=== PATIENT | female | born 1950 | race Caucasian/White ===

== ENCOUNTER 2024-02-22 09:01 | Inpatient (IN) | payer OTHER, SELFPAY ==
[2024-02-20 13:02] VITALS: BP 165/110
[2024-02-20 13:28] LABS: % Basophils 0.8 % (0-2); % Immature Granulocytes 0.5 % (0-0.5); % Lymphocytes 20.7 % (20.5-51.1); % Monocytes 7.8 % (1.7-9.3); % Neutrophils 69.2 % (42.2-75.2); Absolute Basophils 0.1 10^3/uL (0-0.2); Absolute Eosinophils 0.1 10^3/uL (0-0.7); Absolute Lymphocytes 1.3 10^3/uL (1.2-3.4); Absolute Monocytes 0.5 10^3/uL (0.1-0.6); Absolute Neutrophils 4.2 10^3/uL (1.4-6.5); Hematocrit 35.6 % (37.0-47.0); Hemoglobin 12.6 g/dL (12.0-16.0); Mean Corp Hgb Conc. 35.4 g/dL (33.0-37.0); Mean Corpuscular Hgb 30.8 pg (27.0-31.0); Mean Platelet Volume 9.4 fL (7.4-10.4); Nucleated Red Blood Cells % 0 %; Platelet Count 246 10^3/uL (130-400); Red Blood Cell Count 4.09 10^6/uL (4.20-5.40); Red Cell Dist. Width 12.3 % (11.5-14.5)
[2024-02-20 13:48] LABS: ALT (SGPT) 39 U/L (0-35); AST (SGOT) 47 U/L (14-36); Albumin 4.5 g/dl (3.5-5.0); Alkaline Phosphatase 102 U/L (38-126); Blood Urea Nitrogen 17 mg/dl (7-17); Calcium 9.4 mg/dl (8.4-10.2); Carbon Dioxide 25 mmol/L (22-30); Chloride 103 mmol/L (98-107); Glucose 114 mg/dl (70-99); Potassium 4.3 mmol/L (3.5-5.1); Sodium 142 mmol/L (135-145); Total Bilirubin 0.8 mg/dl (0.2-1.3); Total Protein 6.9 g/dl (6.3-8.2); eGFR > 60.00
[2024-02-20 14:08] LABS: Erythrocyte Sed Rate 24 mm/hour (0-20)
[2024-02-20 16:04] VITALS: BMI 26.7
[2024-02-20 16:18] VITALS: BP 176/97
--- NOTE | 2024-02-20 16:23 | ED.GENMED ---
History of Present Illness
General
Chief Complaint: Visual Problem
Source: patient
Exam Limitations: none
Time Seen by Provider: 02/20/24 15:57
Nursing documentation reviewed up to this point in time: agreed with
History of Present Illness
History of Present Illness:
3 days ago got vision changes L eye lower field was blurry; upper normal, lasted 10 min
then 2 days ago had episode lasting 1 hour with blurry vision L lower and lateral eye visual field associated with brief intense headache that resolved
then yesterday had mild headache but doesn't think she had vision changes
today went to eye doc and sent for eval for CVA
eye exam normal
does have scalp pain for a few mo but it is top of head and she has psoriasis there; no chewing fatigue
No history of A-fib, hyperlipidemia, diabetes
No history of migraines.
Past History
Past History
ED Past Medical History: Cancer, HTN, Other (sleep apnea) and Other (Hypertension previous appendectomy, inguinal hernia repair, left-sided breast cancer with ostectomy and radiation therapy)
ED Past Surgical History: Appendectomy and Other
Social History
Tobacco: Non-smoker
Alcohol: None
Personal:
Living: with family
Family History
Family History: Negative Diabetes, Hypertension or CAD
Review of Systems
Review of Systems
Allergies reviewed?: Yes
All Other Systems: Not applicable
Phy Exam
Physical Exam
Physical Exam:
GENERAL: Alert , in no apparent distress
HEAD: NCAT
EYE: pupils equal and reactive, no nystagmus, no photophobia
NECK: Supple,full rom, nontender
ENT: o/p clr, mmm.
CARDIAC: Regular rate and rhythm . no edema
LUNGS: Clear breath sounds bilaterally, no acute respiratory distress, no wheezes/rales/rhonchi
ABDOMEN: Soft, without focal tenderness, no r/g, no cvat
NEUROLOGICAL: Alert and orientedx 4, cn intact, no facial asymmetry, 5/5 strength in UE/LE, sensation intact, romberg neg, ambulates without assistance, neg pronator drift, visual olivas intact
SKIN: Warm and dry, skin intact.
MUSCULOSKELETAL: No edema, well perfused.
PSYCH: Normal and appropriate interaction.
Course
Orders/Labs/Results
Orders:
Orders
02/20/24 13:17
C-Reactive Protein Urgent
Complete Blood Count/With Diff Urgent
Comprehensive Metabolic Panel Urgent
Sed Rate [Erythrocyte Sed Rate] Urgent
02/20/24 16:31
Electrocardiogram (*1) Urgent
Reason for Study: TIA/Stroke
EKG- Treatment ONCE
02/20/24 16:36
CT Head & Neck Angio W/wo IV Urgent
Comment:
Reason For Exam: l EYE VISION LOSS HEADACHE
02/20/24 18:55
Aspirin 325 mg PO NOW STA
02/20/24 18:57
Clopidogrel Bisulfate [Plavix] 75 mg PO NOW STA
02/20/24 19:53
Admit/Transfer Patient As Directed
Co-Sign Provider:
Level of Care: Observation services
Assign to:: Telemetry
Physician / Group: Lex
Diagnosis: Vision Changes
Reason for Telemetry: CVA/TIA
Date to Stop Telemetry: 02/23/24
Time to Stop Telemetry: 11:00
PRN Pain Medication Management As Directed
May give lesser potent ordered pain med per pt: Yes
preference::
Protocol:: Medication orders for pain may be administered in a
manner that supports deferring to patient preference
when the pt is:
- Requesting an ordered lesser potent pain medication.
Least to most potent pain medications are defined
as: acetaminophen < NSAID < tramadol < opioids
(morphine, oxycodone, hydromorphone).
- Requesting a lesser dose of the same medication IF
ORDERED.
- Requesting a less intrusive route of administration
if both routes are prescribed by the provider (PO <
IV).
02/20/24 19:54
Code Status As Directed
Resuscitation Status: Full Code
02/23/24 11:00
DC Protocol for Telemetry ONCE
Abnormal Lab Results
02/20/24
13:17
RBC 4.09 L 10^6/uL
(4.20-5.40)
Hct 35.6 L %
(37.0-47.0)
ESR 24 H mm/hour
(0-20)
Glucose 114 H mg/dl
(70-99)
AST 47 H U/L
(14-36)
ALT 39 H U/L
(0-35)
C-Reactive Protein 19.10 H mg/L
(0.0-10.00)
02/20/24 13:17
02/20/24 13:17
Vital Signs
Initial and Last Documented VS:
Initial Vital Signs
Temp Pulse Resp BP Pulse Ox
97.9 F 94 18 165/110 99
02/20/24 13:02 02/20/24 13:02 02/20/24 13:02 02/20/24 13:02 02/20/24 13:02
Last Documented Vital Signs
Temp Pulse Resp BP Pulse Ox
97.9 F 94 18 176/97 98
02/20/24 13:02 02/20/24 13:02 02/20/24 13:02 02/20/24 16:18 02/20/24 17:03
MDM/Problems Addressed
Differential Diagnosis Includes:
CVA, dissection, temporal arteritis, ocular migraine
MDM/Problems Addressed:
73-year-old female with a history of hypertension presents after having a couple of days of intermittent left-sided blurry vision out of her left eye. The visual field was not cut but she had blurriness to the lower part of the field on the left.
Associated with this was a slight headache but only briefly and not the entire time. She says today she has not had any symptoms but she feels anxious now. She went to the eye doctor and had a normal eye exam and was sent here for workup for CVA.
Patient is not a smoker. She has no symptoms currently. Her blood pressure was elevated but she is also quite anxious. Visual olivas were normal. No other focal neurologic deficits. EKG is normal sinus rhythm. She does have a mild elevation of
the ESR and CRP however she does not have temporal artery tenderness. She does have some scalp psoriasis on the top of her scalp that is been ongoing. He is she is not having any fatigue with chewing.
Discussed with neuro who recommended CTA of the head and neck and admit for an MRI
CTA shows 50-70% stenosis R vert artery, 50% L vert artery; no dissection
asa and plavix
neuro aware; recommend MRI
*Critical Care Note
Total Time (30-74mins, 75-104mins- exclusive of procedures): Not Applicable
ED Attending Note
-
Portions of this chart may have been created with voice recognition software.� Occasional wrong word or��sound alike� substitutions may have occurred due to the inherent limitations of voice recognition software.
Discharge Plan
Departure
Patient Disposition: Admit
Date of Disposition: 02/20/24
Time of Disposition: 18:13
Admit to: Telemetry
Presentation/result/management discussed w/ accepting MD/DO: Hospitalist
Condition: Fair
Covid-19: Not Applicable
Discharge Problem:
Alteration in vision, Brain TIA
Prescriptions:
No Action
cyanocobalamin (vitamin B-12) 1,000 MCG tablet
1,000 mcg PO DAILY
cholecalciferol (vitamin D3) 2,000 UNITS tablet
2,000 unit PO HS
losartan 50 mg Tablet
50 mg PO DAILY
latanoprost 0.005 % Drops
1 drp BOTH EYES HS
gabapentin 300 mg Capsule
300 mg PO HS
Referrals:
Sriram Edwards DO [Family Provider] -
Interventions
Interventions:
*Risk Screen - Suicide Last Done: 02/20/24 16:04
*General Assessment Last Done: 02/20/24 16:04
*Neglect/Abuse Screening Last Done: 02/20/24 16:04
ED- Fall Risk Assessment Last Done: 02/20/24 16:04
*ED COVID-19 Vaccine History Last Done: 02/20/24 16:04
ED- Neurological Assessment Last Done: 02/20/24 16:04
ED-EENT Assessment Last Done: 02/20/24 16:10
ED Swallowing Screen Last Done: 02/20/24 16:10
Discharge Date and Time
Print Language: ITALIAN
[2024-02-20] MEDS: ASPIRIN 325 MG PO (18:57)
[2024-02-20] MEDS: PLAVIX 75 MG PO (19:38)
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
[2024-02-20 21:08] VITALS: BP 196/96; BMI 26.3
[2024-02-20] MEDS: NEURONTIN 300 MG PO (21:47)
[2024-02-20 23:26] VITALS: BP 130/85; BP 151/84; BP 164/94; PULSE 64; PULSE 65; PULSE 85
[2024-02-21] VITALS (8 sets, daily range): BP systolic 120–163; BP diastolic 68–93; PULSE 68–98; O2SAT 97–98; BMI 26.3
[2024-02-21 05:50] LABS: Hematocrit 34.9 % (37.0-47.0); Hemoglobin 12.2 g/dL (12.0-16.0); Mean Corpuscular Hgb 30.3 pg (27.0-31.0); Mean Corpuscular Volume 86.8 fL (81.0-99.0); Mean Platelet Volume 9.5 fL (7.4-10.4); Platelet Count 254 10^3/uL (130-400); Red Blood Cell Count 4.02 10^6/uL (4.20-5.40); Red Cell Dist. Width 12.1 % (11.5-14.5); White Blood Cell Count 4.7 10^3/uL (4.8-10.8)
[2024-02-21 06:15] LABS: Blood Urea Nitrogen 12 mg/dl (7-17); Calcium 9.3 mg/dl (8.4-10.2); Carbon Dioxide 27 mmol/L (22-30); Chloride 105 mmol/L (98-107); Estimated Creatinine Clearance 62 ml/min; Glucose 100 mg/dl (70-99); HDL Cholesterol 63 mg/dl; LDL Cholesterol, Calculated 177 mg/dl; Potassium 4.1 mmol/L (3.5-5.1); Sodium 143 mmol/L (135-145); Total Cholesterol 262 mg/dl (50-199); Triglyceride 114 mg/dl (10-149); Very Low Density Lipoprotein 22 mg/dl (0-30); eGFR > 60.00
[2024-02-21 07:38] LABS: Glycohemoglobin (HgbA1c) 5.2 % (4.0-5.6)
--- NOTE | 2024-02-21 07:42 | CON.NEURO ---
Consultation
Order
Date of Consultation: 02/21/24
Requesting Provider: Paulo Burnett DO
Reason for Consult: TIA
CC: none
HPI: This is a 73-year-old woman who presented to [facility] on February 16, 2024 with visual symptoms. According to the patient she has had intermittent painless blurred vision in the left lower visual field lasting from 10 to 60
minutes since 02/17/2024. Ms. Bui endorses a brief episode of 'moving or wiggling' in the right side with associated sharp short lasting right-sided headache. No reports of motor, sensory, speech or balance changes. History of primary
headache syndromes.
The patient has a history of dry macular degeneration and uses a grid for monitoring, with no issues noted.
ER VS: 165/110-196/96, 94, afebrile.
EKG: NSR, QTc Int : 434 ms
PDMP: No recently prescribed medications.
Labs: LDL 177, Glucose�114, normal sodium, creatinine, normal WBCs, hemoglobin, platelets.
HEAD CTA:
1. Moderate irregular soft and calcific atherosclerotic plaque in the right intracranial vertebral artery causing a 50-70% diameter stenosis.
2. Less than 25% diameter stenosis in the left intracranial vertebral artery.
3. Fusiform aneurysmal dilatation of the proximal basilar artery (5.5 mm diameter).
4. No CTA evidence for large vessel arterial stenosis or occlusion in the anterior circulation.
5. No CT evidence for acute intracranial hemorrhage or transcortical infarct.
6. Moderate to severe white matter leukoaraiosis in the frontal and parietal lobes.
CTA neck-1. Moderate calcific atherosclerotic plaque in both proximal internal carotid arteries causing 25-50% diameter stenoses.
2. 50% diameter stenosis in the proximal left vertebral artery.
3. No CTA evidence for right vertebral artery stenosis or occlusion.
4. Mild amount of increased soft tissue in the left side of the base of the tongue effacing the left vallecula which could be (1) lymphoid hyperplasia or (2) less likely squamous cell carcinoma.
5. Severe discogenic degenerative disease at C5/C6 with a disc-osteophyte complex causing mild spinal cord compression and central canal stenosis.
PMH: C5/C DJD, L breast CA, HTN, chronic back pain, Glaucoma, Dry Macular Degeneration, nephrolithiasis, vit D deficiency, h/o left fifth metatarsal fracture
PSH: Bilateral cataract surgery. L Lumpectomy, lap cholecystectomy, appendectomy.
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
FH:mother strokes in her late 60s
All: NKDA:
ROS:Constitutional: Negative. Negative for chills, fever and unexpected weight change.
HENT: Negative for ear pain, hearing loss, tinnitus and trouble swallowing.
Eyes: Positive for visual disturbance.
Respiratory: Negative for cough, choking and shortness of breath.
Cardiovascular: Negative for chest pain, palpitations and leg swelling.
Gastrointestinal: Negative for abdominal pain and vomiting.
Endocrine: Negative. Negative for cold intolerance.
Genitourinary: Negative for dysuria, flank pain and urgency.
Musculoskeletal: Positive for leg cramps
Skin: Negative for rash.
Allergic/Immunologic: Negative. Negative for immunocompromised state.
Neurological: Negative for dizziness, tremors, seizures, speech difficulty, numbness and headaches.
Psychiatric/Behavioral: Negative for behavioral problems, confusion and hallucinations.
General: Well developed. In no acute distress.
Cardio: Regular rate and rhythm without murmur. Extremities are without cyanosis or edema.
Neuro:
Mental Status: Alert, oriented to person, place, and date. Normal attention and recall. Good fund of knowledge. Follows complex requests across the midline. Comprehension, naming, and repetition intact. Immediate and delayed recall 3/3.
Cranial Nerves: . Pupils are equally round, surgical. EOMs full. Visual olivas full to confrontation. No ptosis. No nystagmus. V1-V3 intact to light touch and pinprick bilaterally, symmetric. Face symmetric. Normal hearing AU. The palate
elevated well. SCMs and traps 5/5. Tongue midline. No dysarthria. Telemetry monitoring
Motor: Normal bulk and tone. No pronator or arm drift. Strength 5/5 throughout. No clonus.
Reflexes: 2+ throughout the upper extremities and knees. 2/2 in AJs. Plantar responses flexor bilaterally.
Sensory: Normal vibration and JPS.
Coordination: No dysmetria or tremor.
Gait: deferred
Assessment and Plan:
I. Transient visual changes: TIA vs migraine aura vs ocular etiology
II. Multifocal intracranial stenosis. LDL 177
III. Basilar fusiform aneurysm
IV. Severe C5/C6 DJD
III. Base of the tongue abnormality
-Telemetry monitoring
-Blood pressure control.
-Brain MRI without devi
-Continue aspirin 81 mg once a day and Plavix for 21 days
-Lipitor 40 mg nightly
-Please obtain medical records from patient's damage cutter
-ENT consult for the base of the tongue abnormality
I personally reviewed all radiology and labs along with past medical records pertinent to current medical problems. Total time spent in patient care is 60 minutes.
Thank you for allowing us to participate in the care of this patient. We will continue to follow. Please do not hesitate to contact us with any questions or concerns.
Subjective/Objective
Subjective Data
Date of Service: February 21, 2024
Objective Data
Vital Signs
Temp Pulse Resp BP Pulse Ox
36.6 C 60 16 148/73 100
02/21/24 03:22 02/21/24 03:22 02/21/24 03:22 02/21/24 03:22 02/21/24 03:22
Lab Results
02/21/24 05:14
02/21/24 05:14
Sodium 143 mmol/L (135-145) 02/21/24 05:14
Potassium 4.1 mmol/L (3.5-5.1) 02/21/24 05:14
BUN 12 mg/dl (7-17) 02/21/24 05:14
Glucose 100 mg/dl (70-99) H 02/21/24 05:14
Calcium 9.3 mg/dl (8.4-10.2) 02/21/24 05:14
LDL Cholesterol, Calc 177 mg/dl 02/21/24 05:14
Patient Allergies
No Known Allergies Allergy (Verified 02/20/24 13:04)
Medications
-
Active Medications
Generic Name Dose Route Start Last Admin
Trade Name Freq PRN Reason Stop Dose Admin
Acetaminophen 650 mg 02/20/24 21:07
Acetaminophen 325 Mg Tablet PO 03/19/24 21:06
Q4HPRN PRN
Mild Pain / Temp > 101
Aspirin 81 mg 02/21/24 08:00
Aspirin 81 Mg Chewable Tablet PO 03/20/24 07:59
DAILY HAYLEE
Atorvastatin Calcium 40 mg 02/21/24 18:00
Atorvastatin (Lipitor) 40 Mg Tablet PO 03/20/24 17:59
QPM HAYLEE
Clopidogrel Bisulfate 75 mg 02/21/24 08:00
Clopidogrel 75 Mg Tablet PO 03/20/24 07:59
DAILY HAYLEE
Diazepam 5 mg 02/21/24 08:00
Diazepam 5 Mg Tablet PO 02/22/24 07:59
ONCE PRN PRN
PRIOR TO MRI
Gabapentin 300 mg 02/20/24 22:00 02/20/24 21:47
Gabapentin 300 Mg Capsule PO 03/19/24 21:59 300 mg
HS HAYLEE Administration
Hydralazine HCl 5 mg 02/20/24 21:07
Hydralazine 20 Mg/Ml Vial IV 03/19/24 21:06
Q6HPRN PRN
SBP > 200
Losartan Potassium 50 mg 02/21/24 08:00
Losartan 50 Mg Tablet PO 03/20/24 07:59
DAILY HAYLEE
Sodium Chloride 0 flush 02/20/24 22:00
Sodium Chloride 0.9% (Flush) Syringe IV 03/19/24 21:59
PER PROTOCOL HAYLEE
Home Medications
�Medication �Instructions �Recorded
cholecalciferol (vitamin D3) 50 2,000 unit PO HS Supplement 06/10/14
mcg (2,000 unit) tablet
cyanocobalamin (vitamin B-12) 1,000 mcg PO DAILY Supplement 06/10/14
1,000 mcg tablet
gabapentin 300 mg capsule 300 mg PO HS neurological pain 02/20/24
latanoprost 0.005 % eye drops 1 drp BOTH EYES HS Eye Condition 02/20/24
losartan 50 mg tablet 50 mg PO DAILY Blood Pressure 02/20/24
Vital Signs and Labs
-
Vital Signs and Labs:
Vital Signs
Temp Pulse Resp BP Pulse Ox
37.0 C 74 16 146/96 96
02/21/24 07:00 02/21/24 08:22 02/21/24 07:00 02/21/24 08:22 02/21/24 07:00
Lab Results
02/21/24 05:14
02/21/24 05:14
Sodium 143 mmol/L (135-145) 02/21/24 05:14
Potassium 4.1 mmol/L (3.5-5.1) 02/21/24 05:14
BUN 12 mg/dl (7-17) 02/21/24 05:14
Glucose 100 mg/dl (70-99) H 02/21/24 05:14
Calcium 9.3 mg/dl (8.4-10.2) 02/21/24 05:14
LDL Cholesterol, Calc 177 mg/dl 02/21/24 05:14
Medications
-
Medications:
Generic Name Dose Route Start Last Admin
Trade Name Freq PRN Reason Stop Dose Admin
Acetaminophen 650 mg 02/20/24 21:07
Acetaminophen 325 Mg Tablet PO 03/19/24 21:06
Q4HPRN PRN
Mild Pain / Temp > 101
Aspirin 81 mg 02/21/24 08:00 02/21/24 08:22
Aspirin 81 Mg Chewable Tablet PO 03/20/24 07:59 81 mg
DAILY HAYLEE Administration
Atorvastatin Calcium 40 mg 02/21/24 18:00
Atorvastatin (Lipitor) 40 Mg Tablet PO 03/20/24 17:59
QPM HAYLEE
Clopidogrel Bisulfate 75 mg 02/21/24 08:00 02/21/24 08:22
Clopidogrel 75 Mg Tablet PO 03/20/24 07:59 75 mg
DAILY HAYLEE Administration
Diazepam 5 mg 02/21/24 08:00
Diazepam 5 Mg Tablet PO 02/22/24 07:59
ONCE PRN PRN
PRIOR TO MRI
Gabapentin 300 mg 02/20/24 22:00 02/20/24 21:47
Gabapentin 300 Mg Capsule PO 03/19/24 21:59 300 mg
HS HAYLEE Administration
Hydralazine HCl 5 mg 02/20/24 21:07
Hydralazine 20 Mg/Ml Vial IV 03/19/24 21:06
Q6HPRN PRN
SBP > 200
Losartan Potassium 50 mg 02/21/24 08:00 02/21/24 08:22
Losartan 50 Mg Tablet PO 03/20/24 07:59 50 mg
DAILY HAYLEE Administration
Sodium Chloride 0 flush 02/20/24 22:00
Sodium Chloride 0.9% (Flush) Syringe IV 03/19/24 21:59
PER PROTOCOL HAYLEE
Home Medications
-
Home Medications
cholecalciferol (vitamin D3) 50 mcg (2,000 unit) tablet 2,000 unit PO HS Supplement 06/10/14
cyanocobalamin (vitamin B-12) 1,000 mcg tablet 1,000 mcg PO DAILY Supplement 01/14/15
gabapentin 300 mg capsule 300 mg PO HS neurological pain 02/20/24
latanoprost 0.005 % eye drops 1 drp BOTH EYES HS Eye Condition 02/20/24
losartan 50 mg tablet 50 mg PO DAILY Blood Pressure 02/20/24
[2024-02-21] MEDS: LOW STRENGTH ASPIRIN 81 MG PO (08:22)
[2024-02-21] MEDS: COZAAR 50 MG PO (08:22)
[2024-02-21] MEDS: PLAVIX 75 MG PO (08:22)
[2024-02-21] MEDS: VALIUM 5 MG PO (10:11)
--- NOTE | 2024-02-21 12:36 | PTOTSP ---
pt currently demonstrates ability to complete simple ADLs, functional transfers, ambulation with no assistance. pt demonstrates no overt deficits regarding self care, insight, safety. no acute OT needs identified at this time, will sign off.
--- NOTE | 2024-02-21 12:41 | PTOTSP ---
Pt has no deficits and is independent with ambulation without need for any assistive device. PT will sign off.
--- NOTE | 2024-02-21 13:15 | W.PN.HOSP.TC ---
Today's Communication/Plan
-
MRI brain with embolic strokes -- consulted cardiology and ordered echo
Continue DAPT and statin
Assessment / Plan
Assessment / Plan
Physical Exam
General: Not in acute distress
HEENT: Moist mucous membranes
Respiratory: Clear to Auscultation Bilaterally
Cardiac: S1/S2 and Regular Rhythm
GI: Soft, Non Tender, Non Distended and Normal Bowel Sounds
Musculoskeletal: No Cyanosis and No Edema
Neuro: AAO x 3 and Cranial Nerves 2 through 12, and Strength and Sensation are all nonfocal/grossly intact
Psych: Calm
Assessment/Plan
Patient is a 73 y/o female with past medical history significant for hypertension, glaucoma and dry macular degeneration who presents to ED complaining of vision changes x 3-4 days.
Small acute infarcts in the right centrum semiovale, right lentiform nucleus, left midbrain, and right cerebellum
Transient Vision Changes - suspected secondary to TIA vs migraine aura vs ocular etiology - RESOLVED
Multifocal intracranial stenosis
Basilar fusiform aneurysm
Severe C5/C6 Degenerative Disc Disease
Base of the tongue abnormality
- CT / CTA done in the ED shows areas of vertebral artery stenosis and basilar artery aneurysmal dilation (5mm).
- MRI Brain (as per radiologist's report): 'Small acute infarcts in the right centrum semiovale, right lentiform nucleus, left midbrain, and right cerebellum.'
- Neurology evaluation.
- ASA, Plavix, start statin: continue aspirin 81 mg once a day and Plavix for 21 days, and continue Lipitor 40 mg nightly
- Follow for any recurrent vision changes / other symptoms.
- Minimal elevations in ESR / CRP not consistent with GCA.
- LDL 177
- ? atypical migraine syndrome - though no prior history of similar.
- Requesting records from patient's platinum and palladium kettle tender's office
- Will consult cardiology given suspected embolic stroke
- Echocardiogram
Base of the tongue abnormality
-ENT inpatient vs. outpatient consult, as per neurology recommendations
Benign Hypertension
- Presently elevated in the ED - will allow degree of permissive hypertension given potential CVA / TIA.
- Continue losartan with holding parameters.
- Hydralazine as needed for very high BP.
- Adjust regimen as needed for goal of normotension at discharge.
Glaucoma
Dry Macular Degeneration
- Seen by Ophtho today and exam reportedly unremarkable.
DVT Prophylaxis: Lovenox
Code Status: Full
Anticipated Discharge: 24 - 48 hours
Subjective/Interval History
-
Date of Service: February 21, 2024
Patient was seen and examined. At the time she was seen, she reported that her blurry vision has resolved. No other new symptoms or complaints.
Objective Data
-
Labs:
Laboratory Results
02/21/24
05:14
WBC 4.7 L
Hgb 12.2
Hct 34.9 L
Plt Count 254
Sodium 143
Potassium 4.1
Chloride 105
Carbon Dioxide 27
BUN 12
Creatinine 0.7
Glucose 100 H
Calcium 9.3
Vital Signs:
Vital Signs
Temp Pulse Resp BP Pulse Ox
98.2 F 73 16 163/91 96
02/21/24 11:00 02/21/24 11:00 02/21/24 11:00 02/21/24 11:00 02/21/24 11:00
I&O
02/20/24 02/21/24 02/22/24
06:59 06:59 06:59
Intake Total 480 / 480
Balance 480 / 480
--- NOTE | 2024-02-21 13:45 | CON.CAR ---
Addendum entered and electronically signed by Darrick Ohara MD 02/21/24 15:05:
Patient seen and examined in collaboration with SLIP SEAT COVERER; agree with below. 73-year-old female with hypertension and hyperlipidemia admitted with visual disturbance; found to have multi infarcts on brain MRI.
-Cardiology consulted for possible cardioembolic source.
-The patient will undergo a TRISTAN and ILR insertion tomorrow.
-equipment monitor phototypesetting.
-NPO after midnight.
-LDL is 177 (goal is less than 55); started on atorvastatin 40 mg daily.
Original Note:
Consultation
Consultation Request
Date/Time Consultation Requested: 02/21/24 1340
Date/Time Consultation Performed: 02/21/24 1400
Requesting Provider: Dr. Batres
Performing Provider: Ranjana SAWANT for Dr. Ohara
Reason for Consultation: Strokes on MRI
Medical History
-
Chief Complaint: visual abnormalities, headache
History of Present Illness:
73 y/o female with hypertension, sleep apnea (not on CPAP/BiPAP), glaucoma, fibromyalgia, and breast cancer s/p lumpectomy and radiation who is here for evaluation of visual changes intermittently on left side since Sunday. She had associated
nausea. There was head pain as well, that was not like her usual ache. She went to the paint maker and was told to be evaluated in ER for stroke. MRI has revealed small acute infarcts in the right centrum semiovale, right lentiform nucleus, left
midbrain, and right cerebellum.
Past Medical History
Past Medical History: Cancer, HTN and Other (as above)
Social History
Tobacco: Non-Smoker
Alcohol: Occasional
Family History
Family History: CAD (dad [place] in his 50's, mom stroke)
Allergies / Home Medications
Allergy/AdvReac Type Severity Reaction Status Date / Time
No Known Allergies Allergy Verified 02/20/24 13:04
�Medication �Instructions �Recorded �Confirmed �Type
cholecalciferol (vitamin D3) 50 2,000 unit PO HS Supplement 06/10/14 02/20/24 History
mcg (2,000 unit) tablet
cyanocobalamin (vitamin B-12) 1,000 mcg PO DAILY Supplement 06/10/14 02/20/24 History
1,000 mcg tablet
gabapentin 300 mg capsule 300 mg PO HS neurological pain 02/20/24 02/20/24 History
latanoprost 0.005 % eye drops 1 drp BOTH EYES HS Eye Condition 02/20/24 02/20/24 History
losartan 50 mg tablet 50 mg PO DAILY Blood Pressure 02/20/24 02/20/24 History
Review of Systems
-
History Source: Patient
All other systems: Negative unless noted
Abdomen/GI: Nausea
Neurological: Headache and Other (visual changes left eye)
Physical Exam
Vital Signs
Temp Pulse Resp BP Pulse Ox
98.2 F 73 16 163/91 96
02/21/24 11:00 02/21/24 11:00 02/21/24 11:00 02/21/24 11:00 02/21/24 11:00
Lab Results
02/21/24 05:14
02/21/24 05:14
Physical Exam
General: Well Developed, Well Nourished and No Apparent Distress
HEENT: Normocephalic and Anicteric
Respiratory: Clear and Non Labored Respirations
Cardiac: Regular Rhythm
Musculoskeletal: No Edema
Skin: Warm and Dry
Neuro: AO x 3
Psych: Calm
Impression / Plan
-
Strokes:
-this diagnosis is threat to bodily function
-noted on brain imaging
-neuro on the case
-on ASA, plavix, and statin
-echo today pending
-plan for TRISTAN and loop recorder tomorrow
-tele and EKG SR
-Head neck CT as below and neurosurgery consulted
Dyslipidemia:
-LDL is 177
-continue Lipitor (new)
HTN:
-continue ARB
-may need to adjust as BP is elevated, but await neuro BP recommendations in setting of strokes noted on MRI
Data:
Head/neck CTA: Moderate calcific atherosclerotic plaque in both proximal internal carotid arteries causing 25-50% diameter stenoses. 50% diameter stenosis in the proximal left vertebral artery. No CTA evidence for right vertebral artery stenosis or
occlusion. Mild amount of increased soft tissue in the left side of the base of the tongue effacing the left vallecula which could be (1) lymphoid hyperplasia or (2) less likely squamous cell carcinoma. Severe discogenic degenerative disease at
C5/C6 with a disc-osteophyte complex causing mild spinal cord compression and central canal stenosis. Moderate irregular soft and calcific atherosclerotic plaque in the right intracranial vertebral artery causing a 50-70% diameter stenosis. Less
than 25% diameter stenosis in the left intracranial vertebral artery. Fusiform aneurysmal dilatation of the proximal basilar artery (5.5 mm diameter). No CTA evidence for large vessel arterial stenosis or occlusion in the anterior circulation. No CT
evidence for acute intracranial hemorrhage or transcortical infarct. Moderate to severe white matter leukoaraiosis in the frontal and parietal lobes.
Data Reviewed
-
EKG: Tracing Personally Visualized and interpreted (NSR)
MRI: Report Reviewed by me (Small acute infarcts in the right centrum semiovale, right lentiform nucleus, left midbrain, and right cerebellum.)
Medical Tests (Nuc Med, Echo etc): Other (echo is ordered and pending)
Labs: Labs Reviewed by me
--- NOTE | 2024-02-21 16:54 | CM ---
Alert awake oriented patient who lives with her Carson in a 2 story home with 3 steps to enter and 12 steps to bed/bathroom. She is independent in driving and all activates of daily living.No adaptive devices.Edmond letter given explained
signed on chart.
Had VN in past . No SNF hx
Pharmacy [facility]
PCP Raine
PLAN Home with no anticipated needs
[2024-02-21] MEDS: LOVENOX 40 MG SC (18:26)
[2024-02-21] MEDS: LIPITOR 40 MG PO (18:26)
--- NOTE | 2024-02-21 19:30 | PTCARENOTE ---
Pt received from previous shift in bed w/family at bedside. NIHSS performed upon rounds at bedside w/previous RN = 1, ataxia noted to LE. Neuro check WNL. Pt reports tremors at baseline. Telemetry = SR. Full physical assessment documented
(refer to worklist). Plan of care discussed. OOB to BR. Knee high SCDs in place. Plan of care ongoing.
[2024-02-21] MEDS: NEURONTIN 300 MG PO (21:42)
[2024-02-22 04:00] VITALS: BP 171/100
[2024-02-22] MEDS: TYLENOL 650 MG PO ×2 (04:00→21:24)
[2024-02-22 06:00] VITALS: BMI 26.3
[2024-02-22 08:09] VITALS: BP 157/101
[2024-02-22] MEDS: PLAVIX 75 MG PO (08:58)
[2024-02-22] MEDS: LOW STRENGTH ASPIRIN 81 MG PO (08:58)
[2024-02-22] MEDS: COZAAR 50 MG PO (08:58)
[2024-02-22 09:13] LABS: Glucose - Point of Care 117 mg/dl (70-99)
--- NOTE | 2024-02-22 09:14 | W.PN.NEURO.1 ---
Today's Communication / Plan
-
.
Subjective/Objective
Subjective Data
Date of Service: February 22, 2024
Ms. Bui reports no neurological symptoms since the admission. She has been intermittently hypertensive up to 171/100 in early AM today.
Brain MRI wo devi(02/21/2024) showed acute infarcts in the right centrum semiovale, right lentiform nucleus, left midbrain, and right cerebellum.
LDL 177, [id number], Pl 254
The patient tolerates ASA and Plavix well.
TTE(02/21/2024)-No intracardiac mass or thrombus formation seen.
TRISTAN-is scheduled today in AM.
PMH: C5/C DJD, L breast CA, HTN, chronic back pain, Glaucoma, Dry Macular Degeneration, nephrolithiasis, vit D deficiency, h/o left fifth metatarsal fracture
PSH: Bilateral cataract surgery. L Lumpectomy, lap cholecystectomy, appendectomy.
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
FH:mother strokes in her late 60s
All: NKDA:
ROS:Constitutional: Negative. Negative for chills, fever and unexpected weight change.
HENT: Negative for ear pain, hearing loss, tinnitus and trouble swallowing.
Eyes: Positive for visual disturbance.
Respiratory: Negative for cough, choking and shortness of breath.
Cardiovascular: Negative for chest pain, palpitations and leg swelling.
Gastrointestinal: Negative for abdominal pain and vomiting.
Endocrine: Negative. Negative for cold intolerance.
Genitourinary: Negative for dysuria, flank pain and urgency.
Musculoskeletal: Positive for leg cramps
Skin: Negative for rash.
Allergic/Immunologic: Negative. Negative for immunocompromised state.
Neurological: Negative for dizziness, tremors, seizures, speech difficulty, numbness and headaches.
Psychiatric/Behavioral: Negative for behavioral problems, confusion and hallucinations.
General: Well developed. In no acute distress.
Cardio: Regular rate and rhythm without murmur. Extremities are without cyanosis or edema.
Neuro:
Mental Status: Alert, oriented to person, place, and date. Normal attention and recall. Good fund of knowledge. Follows complex requests across the midline. Comprehension, naming, and repetition intact. Immediate and delayed recall 3/3.
Cranial Nerves: . Pupils are equally round, surgical. EOMs full. Visual olivas full to confrontation. No ptosis. No nystagmus. V1-V3 intact to light touch and pinprick bilaterally, symmetric. Face symmetric. Normal hearing AU. The palate
elevated well. SCMs and traps 5/5. Tongue midline. No dysarthria. Telemetry monitoring
Motor: Normal bulk and tone. No pronator or arm drift. Strength 5/5 throughout. No clonus.
Reflexes: 2+ throughout the upper extremities and knees. 2/2 in AJs. Plantar responses flexor bilaterally.
Sensory: Normal vibration and JPS.
Coordination: No dysmetria or tremor.
Gait: deferred
Assessment and Plan:
I. Acute bihemispheric multiterritorial infarcts. Likely etiology-embolic.
II. Multifocal intracranial stenosis. LDL 177
III. Basilar fusiform aneurysm
IV. Severe C5/C6 DJD
III. Base of the tongue abnormality
-Telemetry monitoring
-BP goal-normotension
-TRISTAN/ILR
-Continue aspirin 81 mg once a day and Plavix for 21 days
-Lipitor 40 mg nightly. LDL goal<100.
-ENT consult for the base of the tongue abnormality
-OP neurology follow in 1-2 weeks.
I personally reviewed all radiology and labs along with past medical records pertinent to current medical problems. Total time spent in patient care is 40 minutes.
Thank you for allowing us to participate in the care of this patient. We will continue to follow. Please do not hesitate to contact us with any questions or concerns.
Objective Data
Vital Signs
Temp Pulse Resp BP Pulse Ox
36.6 C 75 17 153/87 95
02/22/24 08:09 02/22/24 08:58 02/22/24 08:09 02/22/24 08:58 02/22/24 08:09
Lab Results
02/21/24 05:14
02/21/24 05:14
Sodium 143 mmol/L (135-145) 02/21/24 05:14
Potassium 4.1 mmol/L (3.5-5.1) 02/21/24 05:14
BUN 12 mg/dl (7-17) 02/21/24 05:14
Glucose 100 mg/dl (70-99) H 02/21/24 05:14
Calcium 9.3 mg/dl (8.4-10.2) 02/21/24 05:14
LDL Cholesterol, Calc 177 mg/dl 02/21/24 05:14
Patient Allergies
No Known Allergies Allergy (Verified 02/20/24 13:04)
Vital Signs and Labs
-
Vital Signs and Labs:
Vital Signs
Temp Pulse Resp BP Pulse Ox
36.6 C 75 17 153/87 95
02/22/24 08:09 02/22/24 08:58 02/22/24 08:09 02/22/24 08:58 02/22/24 08:09
Lab Results
02/21/24 05:14
02/21/24 05:14
Sodium 143 mmol/L (135-145) 02/21/24 05:14
Potassium 4.1 mmol/L (3.5-5.1) 02/21/24 05:14
BUN 12 mg/dl (7-17) 02/21/24 05:14
Glucose 100 mg/dl (70-99) H 02/21/24 05:14
Calcium 9.3 mg/dl (8.4-10.2) 02/21/24 05:14
LDL Cholesterol, Calc 177 mg/dl 02/21/24 05:14
Medications
-
Medications:
Generic Name Dose Route Start Last Admin
Trade Name Freq PRN Reason Stop Dose Admin
Acetaminophen 650 mg 02/20/24 21:07 02/22/24 04:00
Acetaminophen 325 Mg Tablet PO 03/19/24 21:06 650 mg
Q4HPRN PRN Administration
Mild Pain / Temp > 101
Aspirin 81 mg 02/21/24 08:00 02/22/24 08:58
Aspirin 81 Mg Chewable Tablet PO 03/20/24 07:59 81 mg
DAILY HAYLEE Administration
Atorvastatin Calcium 40 mg 02/21/24 18:00 02/21/24 18:26
Atorvastatin (Lipitor) 40 Mg Tablet PO 03/20/24 17:59 40 mg
QPM HAYLEE Administration
Clopidogrel Bisulfate 75 mg 02/21/24 08:00 02/22/24 08:58
Clopidogrel 75 Mg Tablet PO 03/20/24 07:59 75 mg
DAILY HAYLEE Administration
Enoxaparin Sodium 40 mg 02/21/24 18:00 02/21/24 18:26
Enoxaparin Sodium 40 Mg/0.4 Ml Syringe SC 03/20/24 17:59 40 mg
QPM HAYLEE Administration
Gabapentin 300 mg 02/20/24 22:00 02/21/24 21:42
Gabapentin 300 Mg Capsule PO 03/19/24 21:59 300 mg
HS HAYLEE Administration
Hydralazine HCl 5 mg 02/20/24 21:07
Hydralazine 20 Mg/Ml Vial IV 03/19/24 21:06
Q6HPRN PRN
SBP > 200
Losartan Potassium 50 mg 02/21/24 08:00 02/22/24 08:58
Losartan 50 Mg Tablet PO 03/20/24 07:59 50 mg
DAILY HAYLEE Administration
Sodium Chloride 0 flush 02/20/24 22:00
Sodium Chloride 0.9% (Flush) Syringe IV 03/19/24 21:59
PER PROTOCOL HAYLEE
--- NOTE | 2024-02-22 11:15 | PTOTSP ---
new orders received, spoke with pt. no new deficits appreciated, no skilled OT needs identified, will sign off.
[2024-02-22 11:30] VITALS: BP 134/91
--- NOTE | 2024-02-22 11:34 | PTOTSP ---
New PT order received, spoke with pt who was evaluated by PT yesterday. No new deficits appreciated, no skilled PT needs identified, will sign off.
--- NOTE | 2024-02-22 12:13 | CON.NS ---
Consultation
-
Date/Time Consultation Performed: 02/22/2024; 12:15 pm
Performing Provider: Dafne
Chief Complaint
History of Present Illness
Patient seen and examined. Patient was not in the room on 02/22/2024. Therefore, note was initiated on 02/22/2024, completed on 02/23/2024 after encounter and examination.
This is a neurosurgical consultation on a 73-year-old female, with a past medical history significant for hypertension, glaucoma, who present to the emergency room on 02/20/2024 with vision changes. She was seen by ophthalmology, and evaluation was
normal.She was then seen by neurology, and had a CTA of the head which demonstrated right intracranial vertebral artery stenosis, as well as fusiform aneurysm dilatation of the proximal basilar artery. Patient then underwent an MRI of the brain,
which demonstrated embolic strokes. She was maintained on dual antiplatelet therapy, and statin. Neurosurgery consulted to comment on the fusiform basilar aneurysm.
Patient denies any headache. She has no difficulty with balance. She denies any family history of having aneurysms, or sudden deaths. She does report that her mother did have a history of having strokes, but that she ultimately from
pneumonia. She did have a twin sister, that also recently, and she does not know the cause of . She does have children, and there is no known history of aneurysms in her children.
Review of Systems
-
A 10 point review of systems was performed which includes constitutional, ENT, cardiovascular, respiratory, GI, , neurologic, neurologic, hematologic, and was negative, except for stated in HPI.
Medication and Allergies
Home Medications
Home Medications
�Medication �Instructions �Recorded
cholecalciferol (vitamin D3) 50 2,000 unit PO HS Supplement 06/10/14
mcg (2,000 unit) tablet
cyanocobalamin (vitamin B-12) 1,000 mcg PO DAILY Supplement 06/10/14
1,000 mcg tablet
gabapentin 300 mg capsule 300 mg PO HS neurological pain 02/20/24
latanoprost 0.005 % eye drops 1 drp BOTH EYES HS Eye Condition 02/20/24
losartan 50 mg tablet 50 mg PO DAILY Blood Pressure 02/20/24
Allergies
Allergies
Allergy/AdvReac Type Severity Reaction Status Date / Time
No Known Allergies Allergy Verified 02/20/24 13:04
Physical Exam
-
Exam:
Awake, alert, no apparent distress.
Cranial nerves II to XII are grossly intact.
Motor: 5/5 strength bilaterally in upper extremities with no evidence of pronator drift.
No evidence of dysdiadochokinesia, finger-nose testing is normal.
Sensation to light touch is intact bilaterally in upper and lower extremities.
Gait is steady.
Head is normocephalic atraumatic
Neck is supple
Breathing nonlabored
Cardiac, regular rate and rhythm
Abdomen is soft
Extremities are warm
CT of the head and neck demonstrates mild fusiform aneurysm dilatation of the proximal basilar artery. No obvious evidence of thrombus is noted within the basilar artery, there is evidence of right vertebral artery stenosis noted.
MRI of the brain demonstrates small punctate areas of DWI hyperintensity noted in the right cerebellum left midbrain right caudate right centrum semiovale.
Problems
-
Problem Status Onset Code
Brain TIA G45.9
Alteration in vision H54.7
Assessment / Plan
-
This is a 73-year-old female who presents with multiple embolic intracranial strokes. She does have evidence of vertebral artery stenosis. It is unlikely that the mild fusiform aneurysmal dilatation of the basilar artery is the cause of embolic
strokes, no obvious evidence of thrombus is seen. Agree with dual antiplatelet therapy, statin/stroke management, per neurology recommendations.
Patient can see cerebrovascular neurosurgery ([facility] or [facility]) for additional input/follow-up regarding this basilar artery finding as outpatient.
Discussed with patient.
--- NOTE | 2024-02-22 13:30 | W.PN.CD ---
Today's Communication / Plan
-
ILR after TRISTAN
Impression / Plan
-
Strokes:
-this diagnosis is threat to bodily function
-noted on brain imaging
-neuro on the case
-on ASA, plavix, and statin
-TRISTAN no thrombus, ILR to be implanted
-tele and EKG SR
-Head neck CT as below and neurosurgery consulted
Dyslipidemia:
-LDL is 177
-continue Lipitor (new)
HTN:
-continue ARB
-may need to adjust as BP is elevated, but await neuro BP recommendations in setting of strokes noted on MRI
Data:
Head/neck CTA: Moderate calcific atherosclerotic plaque in both proximal internal carotid arteries causing 25-50% diameter stenoses. 50% diameter stenosis in the proximal left vertebral artery. No CTA evidence for right vertebral artery stenosis or
occlusion. Mild amount of increased soft tissue in the left side of the base of the tongue effacing the left vallecula which could be (1) lymphoid hyperplasia or (2) less likely squamous cell carcinoma. Severe discogenic degenerative disease at
C5/C6 with a disc-osteophyte complex causing mild spinal cord compression and central canal stenosis. Moderate irregular soft and calcific atherosclerotic plaque in the right intracranial vertebral artery causing a 50-70% diameter stenosis. Less
than 25% diameter stenosis in the left intracranial vertebral artery. Fusiform aneurysmal dilatation of the proximal basilar artery (5.5 mm diameter). No CTA evidence for large vessel arterial stenosis or occlusion in the anterior circulation. No CT
evidence for acute intracranial hemorrhage or transcortical infarct. Moderate to severe white matter leukoaraiosis in the frontal and parietal lobes.
Physical Exam
Vital Signs/Labs
Vital Signs
Temp Pulse Resp BP Pulse Ox
97.8 F 66 16 134/91 97
02/22/24 11:30 02/22/24 11:30 02/22/24 11:30 02/22/24 11:30 02/22/24 11:30
02/21/24 02/22/2402/22/24
06:59 06:59 06:59
Actual Weight 139 lb 2 oz 138 lb 14.4 oz
02/21/24 05:14
02/21/24 05:14
Triglycerides 114 mg/dl (10-149) 02/21/24 05:14
LDL Cholesterol, Calc 177 mg/dl 02/21/24 05:14
VLDL Cholesterol, Calc 22 mg/dl (0-30) 02/21/24 05:14
HDL Cholesterol 63 mg/dl 02/21/24 05:14
Physical Exam
Constitutional: No acute distress
EENT: Anicteric
Cardiovascular: Rhythm & rate is regular
Respiratory: Respiratory effort normal
GI: Soft
Neuro/Psych: AO x 3
Data Reviewed
-
Date of Service: February 22, 2024
Medical Decision Making: Reviewed Test Results
EKG: Tracing Personally Visualized and interpreted (sr)
Echo: Tracing Personally Visualized and interpreted
Labs: Labs Reviewed by me
--- NOTE | 2024-02-22 15:03 | W.PN.HOSP.TC ---
Today's Communication/Plan
-
TRISTAN/ILR today by cardiology
Neurosurgery to evaluate aneurysm
Appreciate Neurology, Neurosurgery
Assessment / Plan
Assessment / Plan
Physical Exam
General: Not in acute distress
HEENT: Moist mucous membranes
Respiratory: Clear to Auscultation Bilaterally
Cardiac: S1/S2 and Regular Rhythm
GI: Soft, Non Tender, Non Distended and Normal Bowel Sounds
Musculoskeletal: No Cyanosis and No Edema
Neuro: AAO x 3 and Cranial Nerves 2 through 12, and Strength and Sensation are all nonfocal/grossly intact
Psych: Calm

Brain MRI (as per radiologist's report)
'IMPRESSION:
Small acute infarcts in the right centrum semiovale, right lentiform nucleus, left midbrain, and right cerebellum.'
CTA Head and Neck (as per radiologist's report)
'NECK CTA:
1. Moderate calcific atherosclerotic plaque in both proximal internal carotid arteries causing 25-50% diameter stenoses.
2. 50% diameter stenosis in the proximal left vertebral artery.
3. No CTA evidence for right vertebral artery stenosis or occlusion.
4. Mild amount of increased soft tissue in the left side of the base of the tongue effacing the left vallecula which could be (1) lymphoid hyperplasia or (2) less likely squamous cell carcinoma.
5. Severe discogenic degenerative disease at C5/C6 with a disc-osteophyte complex causing mild spinal cord compression and central canal stenosis.
HEAD CTA:
1. Moderate irregular soft and calcific atherosclerotic plaque in the right intracranial vertebral artery causing a 50-70% diameter stenosis.
2. Less than 25% diameter stenosis in the left intracranial vertebral artery.
3. Fusiform aneurysmal dilatation of the proximal basilar artery (5.5 mm diameter).
4. No CTA evidence for large vessel arterial stenosis or occlusion in the anterior circulation.
5. No CT evidence for acute intracranial hemorrhage or transcortical infarct.
6. Moderate to severe white matter leukoaraiosis in the frontal and parietal lobes.'

Assessment/Plan
Patient is a 73 y/o female with past medical history significant for hypertension, glaucoma and dry macular degeneration who presents to ED complaining of vision changes x 3-4 days.
Small acute infarcts in the right centrum semiovale, right lentiform nucleus, left midbrain, and right cerebellum
Transient Vision Changes - suspected secondary to TIA vs migraine aura vs ocular etiology - RESOLVED
Multifocal intracranial stenosis
Basilar fusiform aneurysm
Severe C5/C6 Degenerative Disc Disease
Base of the tongue abnormality
- CT / CTA done in the ED shows areas of vertebral artery stenosis and basilar artery aneurysmal dilation (5mm).
- MRI Brain (as per radiologist's report): 'Small acute infarcts in the right centrum semiovale, right lentiform nucleus, left midbrain, and right cerebellum.'
- Neurology evaluation.
- ASA, Plavix, start statin: continue Aspirin 81 mg once a day and Plavix for 21 days (day 1 was 02/21/24), and continue Lipitor 40 mg nightly
- Follow for any recurrent vision changes / other symptoms.
- Minimal elevations in ESR / CRP not consistent with GCA.
- LDL 177
- ? atypical migraine syndrome - though no prior history of similar.
- Per patient, her wireline supervisor said there was no etiology of her transient blurry vision when she was examined by them earlier this week
- Consulted cardiology given suspected embolic stroke: TRISTAN and ILR today
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
-Neurosurgery consulted, appreciate evaluation and recommendations
Intracranial vertebral artery stenosis
-Will discuss with vascular surgery
Base of the tongue abnormality - as per radiologist's report, mild amount of increased soft tissue in the left side of the base of the tongue effacing the left vallecula which could be (1) lymphoid hyperplasia or (2) less likely squamous cell
carcinoma
-ENT consulted for possible lesion present on CT Imaging
Benign Hypertension
- Continue losartan with holding parameters.
- Hydralazine as needed for very high BP.
- Adjust regimen as needed for goal of normotension at discharge.
Glaucoma
Dry Macular Degeneration
- Seen by Ophtho just prior to arrival and exam reportedly unremarkable.
DVT Prophylaxis: Lovenox
Code Status: Full
Anticipated Discharge: Within 24 hours
Subjective/Interval History
-
Date of Service: February 22, 2024
Patient was seen and examined. She denied any numbness, tingling, blurry vision or any neurological deficits.
Objective Data
-
Vital Signs:
Vital Signs
Temp Pulse Resp BP Pulse Ox
97.8 F 66 16 134/91 97
02/22/24 11:30 02/22/24 11:30 02/22/24 11:30 02/22/24 11:30 02/22/24 11:30
I&O
02/21/24 02/22/24 02/23/24
06:59 06:59 06:59
Intake Total 480 / 480 1080 / 1080
Balance 480 / 480 1080 / 1080
--- NOTE | 2024-02-22 15:31 | CM ---
Chart reviewed: TRISTAN/ILR today by cardiology; Neurosurgery to evaluate aneurysm.
Per PT no skilled PT needed
Anticipated Discharge: Within 24 hours
Plan: When ready for discharge, CM will offer VN and if agreeable will send referral to agency preference. Spoke with spouse via phone, he did not want to make the decision for her
--- NOTE | 2024-02-22 17:10 | ITS.CL.IMPLP ---
[employer] - Implant Loop
Implant Loop
Procedure Report:
Date of Procedure: February 22, 2024.
Procedure: Insertable Loop Recorder Implant.
Indication: Embolic stroke of unknown source.
Performing physician: Bo Pisano MD, [facility].
Implant: [employer]onic; Reveal LINQII; Model# [id number]; Serial# [id number].
Technique: The patient was prepped and draped in the usual fashion. A time-out was performed. No intravenous sedation was administered. Local anesthetic was applied to the left pre-pectoral subcutaneous tissue. Using the insertion kit an incision
was made left of the midline in the fourth intercostal space and the device was implanted subcutaneously and directed towards the nipple. Hemostasis was excellent. The skin was closed with steri-strips. The estimated blood loss was less than 1 ml.
There were no complications. No fluoroscopy. R waves measured 0.41 mV and P waves were visible.
Final Programming: Detections: Afib, tachy at 160 bpm, fernanda at 30 bpm, pause at 3 sec.
Conclusion: Uncomplicated insertable loop implant.
Recommendation: Routine post-insertable loop care. The device is MRI conditional without a waiting period and up to 3 So.
cc: Naveen Alberts MD.
[2024-02-22] MEDS: LOVENOX 40 MG SC (17:18)
[2024-02-22] MEDS: LIPITOR 40 MG PO (17:18)
[2024-02-22 17:22] VITALS: BP 150/104
[2024-02-22 19:34] VITALS: BP 134/46; BP 134/96; BP 135/88; BP 140/85; PULSE 115; PULSE 85; PULSE 93
[2024-02-22] MEDS: NEURONTIN 300 MG PO (21:21)
[2024-02-22 23:07] VITALS: BP 136/86
[2024-02-23 03:00] VITALS: BP 131/91
[2024-02-23 07:00] VITALS: BP 124/86
[2024-02-23] MEDS: LOW STRENGTH ASPIRIN 81 MG PO (08:11)
[2024-02-23] MEDS: COZAAR 50 MG PO (08:11)
[2024-02-23] MEDS: PLAVIX 75 MG PO (08:12)
--- NOTE | 2024-02-23 10:15 | CON.MD ---
Consultation - Medical
-
Chief complaint: Questionable left base of tongue lesion
History of present illness: This 73-year-old woman who presented with visual changes and was diagnosed with a TIA, had a CT scan of the head and neck which revealed fullness in the left base of tongue. The differential given was asymmetric lymphoid
tissue versus squamous cell carcinoma. I was asked to see the patient regarding this and to evaluate her base of tongue with a flexible laryngoscope. The patient has been doing well. She does not have any difficulty swallowing. She has no throat
pain. She has not lost weight unintentionally and has not noted any significant changes in her voice. CT scan showed fullness in the area of the left vallecula but did not show an obvious mass. No other significant lesions were noted in the
throat.
Allergies: No known drug allergies
Home medications: Cholecalciferol 2000 units p.o. nightly
Cyanocobalamin 1000 mcg p.o. daily
Gabapentin 300 mg p.o. nightly
Latanoprost 1 drop both eyes nightly
Losartan 50 mg p.o. daily
Chronic illnesses: Brain TIA, alteration in vision, sleep apnea, essential hypertension, calculus of gallbladder with acute cholecystitis, glaucoma
Hospitalizations: The patient is currently hospitalized for change of vision and TIA
Family history: Asked and is noncontributory for this problem
Surgical history: The patient had a loop recorder placed yesterday
Review of systems: Positive for visual changes now resolved, negative for dysphagia and sore throat, negative for change in voice
Physical examination:
Head: Atraumatic and normocephalic
Eyes: Extraocular movements are intact and pupils are equal and reactive to light
Nose: Deviation of the septum toward the left side, no evidence of infection
Nasopharynx: Normal without mass or tumor
Neck: Supple without adenopathy
Ears: No evidence of infection
Salivary glands: Normal to exam
Thyroid gland: Normal
Cranial nerves: 2 through 12 are intact bilaterally
Procedure: Flexible endoscopy performed at the bedside
The patient's nose was first examined with a flexible laryngoscope and she was noted to have a deviation of the septum toward the left side. Because of this it was decided to pass the scope through the right side. She was asked to breathe deeply
through her nose while the scope was passed to the posterior nose through the nasopharynx and into the hypopharynx. Good visualization was achieved. Base of tongue is normal and there are no suspicious masses or tumors. There may be slight
asymmetry with more prominent but normal-appearing, lymphoid tissue near the vallecula on the left side. No suspicious lesions were seen. Vocal cord motion is normal. No significant swelling is noted.
Impression/plan: This patient was evaluated because of an incidental finding on the CT scan of the neck which showed asymmetry of tissue in the vallecula area at the back of the tongue with the left side more prominent than the right. The patient
has no symptoms related to this. She is not having difficulty swallowing and has no discomfort. Examination with the flexible laryngoscope, as detailed above does not show abnormal lesions. I explained to the patient that sometimes the CAT scan
images are caught while the patient is swallowing and this can cause some asymmetry that otherwise might not be present. She has no suspicious lesions and does not need further follow-up.
--- NOTE | 2024-02-23 13:15 | W.PN.HOSP.TC ---
Today's Communication/Plan
-
Discharge today
Assessment / Plan
Assessment / Plan
Physical Exam
General: Not in acute distress
HEENT: Moist mucous membranes
Respiratory: Clear to Auscultation Bilaterally
Cardiac: S1/S2 and Regular Rhythm
GI: Soft, Non Tender, Non Distended and Normal Bowel Sounds
Musculoskeletal: No Cyanosis and No Edema
Neuro: AAO x 3 and Cranial Nerves 2 through 12, and Strength and Sensation are all nonfocal/grossly intact
Psych: Calm

Brain MRI (as per radiologist's report)
'IMPRESSION:
Small acute infarcts in the right centrum semiovale, right lentiform nucleus, left midbrain, and right cerebellum.'
CTA Head and Neck (as per radiologist's report)
'NECK CTA:
1. Moderate calcific atherosclerotic plaque in both proximal internal carotid arteries causing 25-50% diameter stenoses.
2. 50% diameter stenosis in the proximal left vertebral artery.
3. No CTA evidence for right vertebral artery stenosis or occlusion.
4. Mild amount of increased soft tissue in the left side of the base of the tongue effacing the left vallecula which could be (1) lymphoid hyperplasia or (2) less likely squamous cell carcinoma.
5. Severe discogenic degenerative disease at C5/C6 with a disc-osteophyte complex causing mild spinal cord compression and central canal stenosis.
HEAD CTA:
1. Moderate irregular soft and calcific atherosclerotic plaque in the right intracranial vertebral artery causing a 50-70% diameter stenosis.
2. Less than 25% diameter stenosis in the left intracranial vertebral artery.
3. Fusiform aneurysmal dilatation of the proximal basilar artery (5.5 mm diameter).
4. No CTA evidence for large vessel arterial stenosis or occlusion in the anterior circulation.
5. No CT evidence for acute intracranial hemorrhage or transcortical infarct.
6. Moderate to severe white matter leukoaraiosis in the frontal and parietal lobes.'

Assessment/Plan
Patient is a 73 y/o female with past medical history significant for hypertension, glaucoma and dry macular degeneration who presents to ED complaining of vision changes x 3-4 days.
Small acute infarcts in the right centrum semiovale, right lentiform nucleus, left midbrain, and right cerebellum
Transient Vision Changes - suspected secondary to TIA vs migraine aura vs ocular etiology - RESOLVED
Multifocal intracranial stenosis
Basilar fusiform aneurysm
Severe C5/C6 Degenerative Disc Disease
Base of the tongue abnormality
- CT / CTA done in the ED shows areas of vertebral artery stenosis and basilar artery aneurysmal dilation (5mm).
- MRI Brain (as per radiologist's report): 'Small acute infarcts in the right centrum semiovale, right lentiform nucleus, left midbrain, and right cerebellum.'
- Neurology evaluation.
- ASA, Plavix, start statin: continue Aspirin 81 mg once a day and Plavix for 21 days (day 1 was 02/21/24), and continue Lipitor 40 mg nightly
- Follow for any recurrent vision changes / other symptoms.
- Minimal elevations in ESR / CRP not consistent with GCA.
- LDL 177
- ? atypical migraine syndrome - though no prior history of similar.
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
- Consulted cardiology given suspected embolic stroke: TRISTAN and ILR performed
- Follow routine post-insertable loop care. The device is MRI conditional without a waiting period and up to 3 So.
- Outpatient neurology follow-up in 1 to 2 weeks
- Follow-up closely with your outpatient opthalmologist
- Follow-up closely with your PCP for optimal blood pressure control
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
-Neurosurgery consulted, appreciate evaluation and recommendations
Intracranial vertebral artery stenosis
-Neurosurgery consulted, appreciate their evaluation and recommendations
-Recommended that patient follow-up with cerebrovascular neurosurgery ([place] or [facility]) for additional input/follow-up regarding this basilar artery finding as outpatient
Base of the tongue abnormality - as per radiologist's report, mild amount of increased soft tissue in the left side of the base of the tongue effacing the left vallecula which could be (1) lymphoid hyperplasia or (2) less likely squamous cell
carcinoma -- no suspicious lesions as per community relations assistant
-ENT consulted for possible lesion present on CT Imaging: they mentioned that patient has no suspicious lesions and does not need any further follow-up
Benign Hypertension
- Continue losartan with holding parameters.
- Hydralazine as needed for very high BP.
- Adjust regimen as needed for goal of normotension at discharge.
Glaucoma
Dry Macular Degeneration
- Seen by Ophtho just prior to arrival and exam reportedly unremarkable.
DVT Prophylaxis: Lovenox
Code Status: Full Code
More than 30 minutes spent in discharge including
Final examination of the patient
Summarizing hospital stay
Instructions for continuing care to all relevant caregivers
Preparation of discharge records, prescriptions, and referral forms
Total time spent (in minutes): 38
Anticipated Discharge: Today
Subjective/Interval History
-
Date of Service: February 23, 2024
Patient was seen and examined. She reported no new symptoms or complaints.
Objective Data
-
Vital Signs:
Vital Signs
Temp Pulse Resp BP Pulse Ox
99.5 F 84 16 124/86 92
02/23/24 07:00 02/23/24 07:00 02/23/24 07:00 02/23/24 07:00 02/23/24 07:00
I&O
02/22/24 02/23/24 02/24/24
06:59 06:59 06:59
Intake Total 1080 / 1080 840 / 840
Balance 1080 / 1080 840 / 840
--- NOTE | 2024-02-23 13:54 | W.DCSUMMARY ---
Discharge Summary
Discharge Data
Date of Admission: 02/22/24
Date of Discharge: 02/23/24
Total time spent discharging patient (in min): 38
-
Pending Results: No
Hospital Course
73 y/o female with past medical history significant for hypertension and glaucoma who presented with blurry vision. Patient was seen by ophthalmology on the day of presentation to the emergency room, and patient stated that her mycologist's
evaluation was normal but she was referred to the emergency department for further evaluation. Patient was placed on Aspirin, Plavix and Statin, Brain MRI was ordered and neurology was consulted. Brain MRI showed multiple strokes, and cardiology was
consulted due to concern for embolic strokes. Neurosurgery was also consulted given findings of vertebral artery stenosis on CTA. Neurosurgery mentioned that it is unlikely that the mild fusiform aneurysmal dilatation of the basilar artery is the
cause of embolic strokes, no obvious evidence of thrombus is seen; and patient could see cerebrovascular neurosurgery ([place] or [facility]) for additional input/follow-up regarding this basilar artery finding as an outpatient.
Transthoracic echocardiogram was performed, and showed as per canned food reconditioning inspector's report:
'CONCLUSIONS
Left ventricle is small in size with mild concentric remodeling and normal left
ventricular systolic function. Left ventricular ejection fraction is 55-60% by
volumetric assessment. Normal regional wall motion. Diastolic function
indeterminate.
Normal right ventricular size and function.
Normal atria.
Mitral annular calcification.
No significant valve abnormalities.
No evidence of pulmonary hypertension.
Compared to prior stress echo study of 12/04/2018, systolic function is similar
to baseline of the stress echo.'
Transesophageal echocardiogram was performed, and showed, as per canned food reconditioning inspector's report:
'CONCLUSIONS
Small LV cavity size with normal systolic function and no regional wall motion
abnormalities.
LVEF is 60-65% by visual estimation.
Mild concentric LVH.
Normal RV size and function.
No significant valve abnormalities.
Interatrial septum is intact with no obvious shunt on color flow Doppler and
agitated saline injection.
No significant change from TTE on February 21, 2024.'
There was a concern for base of the tongue abnormality based on imaging that was done, ENT specialist was consulted and they did not have any concerns about it. Patient had an uncomplicated insertable loop implant placed on February 22, 2024.
Discharge Plan
-
Patient Disposition: Home (Routine Discharge)
Discharge Diagnosis/Procedures: Linq implant placement
Small acute infarcts in the right centrum semiovale, right lentiform nucleus, left midbrain, and right cerebellum
Transient Vision Changes - suspected secondary to TIA vs migraine aura vs ocular etiology - RESOLVED
Multifocal intracranial stenosis
Basilar fusiform aneurysm
Severe C5/C6 Degenerative Disc Disease
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
Intracranial vertebral artery stenosis
Base of the tongue abnormality - as per radiologist's report, mild amount of increased soft tissue in the left side of the base of the tongue effacing the left vallecula which could be (1) lymphoid hyperplasia or (2) less likely squamous cell
carcinoma -- no suspicious lesions as per health services director
Benign Hypertension
Glaucoma
Dry Macular Degeneration
Brain MRI (as per radiologist's report)
'IMPRESSION:
Small acute infarcts in the right centrum semiovale, right lentiform nucleus, left midbrain, and right cerebellum.'
CTA Head and Neck (as per radiologist's report)
'NECK CTA:
1. Moderate calcific atherosclerotic plaque in both proximal internal carotid arteries causing 25-50% diameter stenoses.
2. 50% diameter stenosis in the proximal left vertebral artery.
3. No CTA evidence for right vertebral artery stenosis or occlusion.
4. Mild amount of increased soft tissue in the left side of the base of the tongue effacing the left vallecula which could be (1) lymphoid hyperplasia or (2) less likely squamous cell carcinoma.
5. Severe discogenic degenerative disease at C5/C6 with a disc-osteophyte complex causing mild spinal cord compression and central canal stenosis.
HEAD CTA:
1. Moderate irregular soft and calcific atherosclerotic plaque in the right intracranial vertebral artery causing a 50-70% diameter stenosis.
2. Less than 25% diameter stenosis in the left intracranial vertebral artery.
3. Fusiform aneurysmal dilatation of the proximal basilar artery (5.5 mm diameter).
4. No CTA evidence for large vessel arterial stenosis or occlusion in the anterior circulation.
5. No CT evidence for acute intracranial hemorrhage or transcortical infarct.
6. Moderate to severe white matter leukoaraiosis in the frontal and parietal lobes.'
Condition: Good
Diet: Low Fat, Low Cholesterol and Low Sodium
Activity: As tolerated
Bathing Restrictions: After dressing removed
Activity Restrictions/Additional Instructions:
Continue Aspirin 81 mg once a day indefinitely
Continue Plavix for 21 days (day 1 was 02/21/24)
Continue Lipitor 40 mg nightly
Follow routine post-insertable loop care. The device is MRI conditional without a waiting period and up to 3 So.
Outpatient neurology follow-up in 1 to 2 weeks
Follow-up closely (this upcoming week) with your outpatient mycologist
Follow-up closely (this upcoming week) with your PCP for optimal blood pressure control
Follow-up with cerebrovascular neurosurgery ([place] or [facility]) for additional input/follow-up regarding your basilar artery findings on hospital imaging.
Stand Alone Forms: [facility] - Implanted Device
Referrals:
Melissa Whiteside CRNP [Specified Professional Personl] - in one to two weeks (Hospital follow-up; need appointment in 1 to 2 weeks as per hospital neurologist)
Ranjana Ha CRNP [Specified Professional Personl] - 03/07/24 11:20 am (Incision check appointment)
Sriram Edwards DO [Family Provider] - in less than 1 week
Additional Discharge Medication Instructions: Aspirin, Clopidogrel, and Atorvastatin are new medications.
Prescriptions:
New
atorvastatin 40 mg Tablet
40 mg PO QPM Qty: 30 2RF
aspirin 81 mg Tablet,Chewable
81 mg PO DAILY Qty: 30 2RF
clopidogrel 75 mg Tablet
75 mg PO DAILY 18 Days Qty: 18 0RF
Rx Instructions:
Start on 02/24/24
Continued
cyanocobalamin (vitamin B-12) 1,000 MCG tablet
1,000 mcg PO DAILY
cholecalciferol (vitamin D3) 2,000 UNITS tablet
2,000 unit PO HS
losartan 50 mg Tablet
50 mg PO DAILY
latanoprost 0.005 % Drops
1 drp BOTH EYES HS
gabapentin 300 mg Capsule
300 mg PO HS
Discharge Orders:
Discharge Patient (As Directed); Ordered 02/23/24
Ordered By: Kyler Batres
Discharge Date and Time
Discharge Date/Time: 02/23/24 14:27
Print Language: WELSH
[2024-02-23] MEDS: FLUAD (65 yr+) 2024-2025 FORMULA 0.5 ML IM (14:10)
--- NOTE | 2024-02-23 16:02 | CM ---
MD entered order for discharge.
Spoke with pt in room .
She said she was ready for discharge.
She said [facility] will drive her home.
Offered Vn she declined .
PLAN Home no needs
== END 2024-02-23 14:27 | disposition home or self-care (01) | DRG 42 ==
LOC: 3 WEST ACU 09:01
PROVIDERS: Emergency Medicine; Internal Medicine Cardiovascular Disease; ADMITTING PHYSICIAN Hospitalist; ATTENDING PHYSICIAN Hospitalist; CONSULT PHYSICIAN Internal Medicine; CONSULT PHYSICIAN Otolaryngology Facial Plastic Surgery; CONSULT PHYSICIAN Psychiatry & Neurology Neurology; EMERGENCY PHYSICIAN Student in an Organized Health Care Education/Training Program; FAMILY PHYSICIAN Family Medicine; OTHER PHYSICIAN Neurological Surgery
PROC: 0JH602Z Insertion of Monitoring Device into Chest Subcutaneous Tissue and Fascia, Open Approach (ICD-10-PCS; 2024-02-22)
PROC: 0CJS8ZZ Inspection of Larynx, Via Natural or Artificial Opening Endoscopic (ICD-10-PCS; 2024-02-23)
DX: I63.40 Cerebral infarction due to embolism of unspecified cerebral artery (principal); I72.5 Aneurysm of other precerebral arteries; I10 Essential (primary) hypertension; I65.01 Occlusion and stenosis of right vertebral artery; E55.9 Vitamin D deficiency, unspecified; G47.30 Sleep apnea, unspecified; G89.29 Other chronic pain; H35.30 Unspecified macular degeneration; H40.9 Unspecified glaucoma; J34.2 Deviated nasal septum; L40.9 Psoriasis, unspecified; M47.812 Spondylosis without myelopathy or radiculopathy, cervical region; M79.7 Fibromyalgia; R20.0 Anesthesia of skin; R25.2 Cramp and spasm; Z79.82 Long term (current) use of aspirin; Z79.899 Other long term (current) drug therapy; Z87.81 Personal history of (healed) traumatic fracture; Z90.89 Acquired absence of other organs; Z87.19 Personal history of other diseases of the digestive system; Z87.442 Personal history of urinary calculi; Z85.3 Personal history of malignant neoplasm of breast; Z92.3 Personal history of irradiation; Z82.3 Family history of stroke; Z82.49 Family history of ischemic heart disease and other diseases of the circulatory system
CPT/HCPCS: 33285; 70496; 70498; 70553; 80048; 80053; 80061; 82962; 83036; 85025; 85027; 85652; 86140; 90662; 93005; 93306; 93312; 93320; 93325; 97162; 97166; 99285; C1764; G0008; Q9967

== ENCOUNTER → 2024-04-15 11:44 | Outpatient (REF) | payer OTHER, SELFPAY | LOC: HWRAD 11:44 | PROVIDERS: ATTENDING PHYSICIAN Surgery; FAMILY PHYSICIAN Family Medicine | DX: R19.01 Right upper quadrant abdominal swelling, mass and lump (principal) | CPT/HCPCS: 74177; Q9967 ==

== ENCOUNTER → 2025-01-02 06:34 | Outpatient (REF) | payer OTHER, SELFPAY | LOC: MRI 06:34 | PROVIDERS: ATTENDING PHYSICIAN Nurse Practitioner Adult Health; FAMILY PHYSICIAN Family Medicine | DX: I63.9 Cerebral infarction, unspecified (principal); R42 Dizziness and giddiness | CPT/HCPCS: 70551 ==